=== PATIENT | female | born 1980 | race Caucasian/White ===

== ENCOUNTER 2017-02-26 11:30 | Emergency (ER) | payer OTHER ==
[~2017-02-26] VITALS: Ht 154.9 cm; Wt 55.0 kg
[2017-02-26 12:00] VITALS: BP 131/84
[2017-02-26] MEDS ORDERED: ULTRAM50 M1 PO (12:26)
[2017-02-26] MEDS ORDERED: TYLENOL & COD12.5 ML PO (12:51)
== END 2017-02-26 12:45 | disposition home or self-care (01) | DRG 558 ==
LOC: ED 11:30
DX: M75.92 Shoulder lesion, unspecified, left shoulder (principal)